=== PATIENT | female | born 1985 | race Caucasian/White ===

== ENCOUNTER → 2022-07-27 11:00 | Outpatient (CLI) | payer OTHER, SELFPAY | PROVIDERS: PCP Family Medicine; Visit Provider Obstetrics & Gynecology | DX: Z34.82 Encounter for supervision of other normal pregnancy, second trimester (principal) | CPT/HCPCS: 87086 ==

== ENCOUNTER → 2022-07-28 07:58 | Outpatient (CLI) | payer OTHER, SELFPAY ==
--- NOTE | 2022-07-28 08:00 | DI.US.S_ITS ---
PROCEDURE: US OB >= 14 WEEKS FETUS INDICATIONS: anatomy scan OUTSIDE/PRIOR DATING DATA: Last menstrual period (LMP): Not reported. LMP-based estimated date of delivery (ORLIN): 12/01/2022. First dating scan (date and location): 07/28/2022. Estimated date of delivery (ORLIN) from first dating scan: 11/28/2022. The calculations are made using the clinical ORLIN of 12/01/2022. TECHNIQUE: Real-time scanning was performed of the fetus, with image documentation and biometric measurements. Endovaginal scanning: Not performed COMPARISON: None. FINDINGS: General: A single living intrauterine gestation is present. Presentation: Vertex. Placenta: Placental position is anterior/fundal , without previa. Amniotic fluid index: 17 cm, normal range is 5-24 cm. Single deepest vertical pocket is 6.3 cm. heart rate: 145 beats per minute. Maternal cervical canal: 4.8 cm long. Normal lower limit is 2.5 cm. biometrics: Biparietal diameter: 5.5 centimeters, 22 weeks 4 days Head circumference: 20.1 centimeters, 22 weeks 2 days Abdominal circumference: 14.7 centimeters, 22 weeks 3 days Femur length: 3.8 centimeters, 22 weeks 1 day Clinically estimated gestational age: 22 weeks 3 days Composite gestational age from present scan: 22 weeks 3 days Estimated weight and percentile: 491 grams Anatomic survey: Neuro: Ventricles are non-dilated at less than 10 mm. Cisterna magna is normal at 3-11 mm. Cerebellum is normal in size and morphology. Nuchal skin fold: Normal at less than 6 mm between 14-21 weeks gestational age. Face: Nose and lips, facial profile are normal. Spine: No evidence for spina bifida. Heart: 4-chambered heart is present, with normal ventricular outflow tracts. Diaphragm: Diaphragm is intact. Stomach: Left-sided stomach is present. Kidneys: No hydronephrosis. Normal is less than 5 mm in 2nd trimester, less than 7 mm in 3rd trimester. Cord: 3-vessel cord has orthotopic insertion. Bladder: Normal in size. Extremities: All 4 extremities identified. IMPRESSION: Single living intrauterine at 22 weeks 3 days, ORLIN of 12/01/2022. Unremarkable anatomy survey. We strive to produce accurate, complete, and clear reports of imaging services. To assist us in improving patient care, this report was composed using standard report templates and voice recognition software. Therefore, it may contain abnormal punctuation, insertions and/or omissions. Occasional wrong-word or sound-alike substitutions may occur. Though we review the report and make efforts to correct it, we do recommend that the report be read carefully in proper context to recognize any text inaccuracies. Dictated by: Donavan Valdes M.D. on 07/28/2022 at 9:43 Approved by: Donavan Valdes M.D. on 07/28/2022 at 9:46
[2022-07-28 10:27] LABS: Add Manual Diff / Slide Review NO; Basophils Absolute Auto 0 /uL (0-100); Basophils Percent Auto 0.4 % (0-2); Eosinophils Absolute Auto 200 /uL (0-450); Eosinophils Percent Auto 2.4 % (2-4); Hematocrit 36.1 % (36-46); Hemoglobin 12.4 g/dL (12.0-16.0); Lymphocytes Absolute Auto 1400 /uL (1100-4500); Lymphocytes Percent Auto 18.3 % (25-40); Mean Corpuscular HGB Conc 34.4 % (30-36); Mean Corpuscular Hemoglobin 29.9 PG (26-34); Mean Corpuscular Volume 86.8 fL (80-100); Monocytes Absolute Auto 500 /uL (0-900); Monocytes Percent Auto 6.1 % (3-14); Neutrophils Absolute Auto 5700 /uL (1500-7000); Neutrophils Percent Auto 72.8 % (50-75); Platelet Count 264 X10^3/uL (150-400); Red Blood Cell Count 4.16 X10^6/uL (4.0-5.2); Red Cell Distribution Width 13.6 % (11.6-14.8); White Blood Cell Count 7.8 X10^3/uL (4.5-11.0)
[2022-07-28 11:24] LABS: Hepatitis B Surface Antigen NEGATIVE s/c (NEGATIVE); Rubella Antibody IgG 79.5 IU/mL (>15)
[2022-07-28 11:41] LABS: HIV 1 & 2 Ab/Ag 4th Gen Combo NEGATIVE (NEGATIVE); Hep C Virus Ab w/Reflex Quant NEGATIVE s/c (NEGATIVE)
[2022-07-29 03:09] LABS: RPR Screen Non Reactive (Non Reactive)
[2022-07-29 08:08] LABS: Varicella IgG Antibody 2172 index (Immune >165)
== END ==
PROVIDERS: PCP Family Medicine; Referring Provider Obstetrics & Gynecology; Visit Provider Obstetrics & Gynecology
DX: O09.30 Supervision of pregnancy with insufficient antenatal care, unspecified trimester (principal); Z3A.20 20 weeks gestation of pregnancy
CPT/HCPCS: 36415; 76811; 80055; 86787; 86803; 86850; 86900; 86901; 87389

== ENCOUNTER → 2022-08-31 13:27 | Outpatient (CLI) | payer OTHER, SELFPAY ==
[2022-08-31 17:01] LABS: Hematocrit 34.5 % (36-46)
[2022-08-31 17:39] LABS: GTT (PREG) 1 Hour PP 50gm Dose 135 mg/dL (76-139)
== END ==
PROVIDERS: PCP Family Medicine; Referring Provider Obstetrics & Gynecology; Visit Provider Obstetrics & Gynecology
DX: Z34.82 Encounter for supervision of other normal pregnancy, second trimester; Z3A.26 26 weeks gestation of pregnancy
CPT/HCPCS: 36415; 82950; 85014; 85018

== ENCOUNTER 2022-11-17 08:11 | Inpatient (IN) | payer OTHER, SELFPAY ==
[2022-11-17 09:31] LABS: Add Manual Diff / Slide Review NO; Basophils Absolute Auto 100 /uL (0-100); Basophils Percent Auto 0.5 % (0-2); Eosinophils Absolute Auto 200 /uL (0-450); Eosinophils Percent Auto 1.3 % (2-4); Lymphocytes Absolute Auto 1700 /uL (1100-4500); Lymphocytes Percent Auto 13.8 % (25-40); Mean Corpuscular HGB Conc 34.3 % (30-36); Mean Corpuscular Hemoglobin 30.3 PG (26-34); Mean Corpuscular Volume 88.5 fL (80-100); Monocytes Absolute Auto 900 /uL (0-900); Monocytes Percent Auto 6.8 % (3-14); Neutrophils Absolute Auto 9800 /uL (1500-7000); Neutrophils Percent Auto 77.6 % (50-75); Platelet Count 253 X10^3/uL (150-400); Red Blood Cell Count 4.29 X10^6/uL (4.0-5.2); Red Cell Distribution Width 13.6 % (11.6-14.8); White Blood Cell Count 12.7 X10^3/uL (4.5-11.0)
[2022-11-17 09:41] LABS: Strep Grp B PCR NEG for Grp B Strep
[2022-11-17] MEDS: FENT 2MCG/ML BUPIV 0.1% EPI 200 MCG/100 ML PLAST..BAG 10 MCG EPIDURAL (10:15)
--- NOTE | 2022-11-17 10:35 | PM.OBHP.IH.1 ---
OB HPI Date/Time Date of admission: 11/17/22 Date Patient Seen: 11/17/22 Time Patient Seen: 10:35 History of Present Condition Chief complaint: OB ORLIN Calculator Estimated Delivery Date Method Current WG Current Estimate 12/01/22 LMP (Certain) 38w 5d Other Estimates 11/24/22 Ultrasound #1 39w 5d : 2 Para: 1 Narrative: Pt had SROM in middle of night. Clear fluid. Presents in active labor. GBS unknown. Missed last appt. care: limited care, initiated at week # (22), number of visits (5) and pounds weight gain (33) Dating criteria OB: LMP confirmed by 2nd trimester US Ultrasounds: normal mid trimester US Obstetrical complications: none Medical complications OB: neurological (TIA in Mar. MRI neg) Preadmission Labs Last OB Lab Results: Blood Type B Positive 11/17/22 10:15 Antibody Screen Negative 11/17/22 10:15 Hematocrit 35.3 % (36-46) L 11/18/22 06:02 Hemoglobin 11.9 g/dL (12.0-16.0) L 11/18/22 06:02 Hepatitis B Surface Antigen Negative s/c (NEGATIVE) 07/28/22 09:25 Hepatitis C Antibody Negative s/c (NEGATIVE) 07/28/22 09:25 Rubella Antibody 79.5 IU/mL (>15) 07/28/22 09:25 Varicella-Zoster IgG Antibody 2172 index (Immune >165) 07/28/22 09:25 Glucose 1 Hour 135 mg/dL (76-139) 08/31/22 16:11 Group B Streptococcus (PCR) Neg for grp b strep 11/17/22 08:30 -: Urine: negative External Labs -: Urine: negative Prior (ies) Past Pregnancies Del. Date GA/Weeks Labor Lgth Wt Sex Route Outcome Anesthesia Place Delv Breastfeed Preg Comp Name 11/07/19 40 27 8 lb 8 oz Male vaginal live - full term La[place] 2 years none Anand Evaluation Evaluation Baseline heart rate: 135 Variability: Moderate (11-25) monitor accelerations: Present Monitor Decelerations: Absent Contraction Frequency (minutes): 3 Uterine Contraction Intensity: Strong/Firm Status: Category l Dilation (cm): 5 Effacement (%): 100 station: -1 Position of cervix: mid Consistency: soft PFSH Medical History (Updated 11/18/22 @ 07:13 by Mimi Low MD) Chicken pox Eczema Food allergy hemorrhage Surgical History (Updated 08/12/22 @ 22:04 by Priscila Nash) Anesthesia [place] teeth extracted (~2001) Family History (Updated 07/19/22 @ 09:12 by Carmen Gutierrez RN) Grandmother Ovarian cancer Family/Other Breast cancer Social History marital status: number of children: 1 household members: spouse and children lives independently: Yes caregiver/support person: Yes housing: house pets and animals: Yes (2 dogs) education level: college (Associates degree) occupational status: employed (owns a restaurant) current occupational exposures/hazards: Yes (cleaning chemicals) luisito/zoroastrianism: Orthodoxy special luisito needs: No travel history: over 6 months ago seatbelt use: always helmet use: Yes water heater temp set < 120 deg: Yes working smoke detector in home: Yes fire extinguisher in home: Yes carbon monox detector in home: Yes firearms in home: Yes firearms unloaded and locked: Yes do you feel safe at home: Yes Smoking Status: Never smoker second hand exposure: No alcohol intake: never substance use type: does not use during the past year weight has: decreased > 10 lbs (intentional) well-balanced diet: daily or most days daily servings fruits/ve-4 caffeine: No Type(s) of exercise: none Meds Home Medications and Allergies Home Medications Medication Instructions Recorded Confirmed Type vitamin-ferrous sulfate See Rx Instructions .Route .COMPLEX 10/13/22 11/17/22 History 27 mg iron-folic acid 0.8 mg tablet breast pump #1 ea 10/27/22 11/17/22 Rx Allergies Allergy/AdvReac Type Severity Reaction Status Date / Time Penicillins Allergy Mild Rash Verified 10/27/22 08:47 OB Exam Narrative Exam Narrative: Generally: Moderate distress due to contractions FH: 38 cm EFW: 7 1/2 pounds Ext: Trace edema Objective Labs 11/18/22 06:02 Labs: Laboratory Results - last 24 hr 11/17/22 11/17/22 08:30 09:04 WBC 12.7 H RBC 4.29 Hgb 13.0 Hct 38.0 MCV 88.5 MCH 30.3 MCHC 34.3 RDW 13.6 Plt Count 253 Neut % (Auto) 77.6 H Lymph % (Auto) 13.8 L [place] % (Auto) 6.8 Eos % (Auto) 1.3 L Baso % (Auto) 0.5 Neut # (Auto) 9800 H Lymph # (Auto) 1700 [place] # (Auto) 900 Eos # (Auto) 200 Baso # (Auto) 100 Group B Strep (PCR) Neg for grp b strep Assessment and Plan Assessment and Plan Assessment and Plan narrative: Assessment: 37 year old at 38 wks in active labor s/p SROM with clear amniotic fluid Plan: GBS obtained Epidural as needed Expectant management to Time Spent with Patient Total time spent with greater than 50% in coordination of care (as documented) at patient's floor/unit and/or counseling patient:: 15-24 minutes
[2022-11-17 10:47] VITALS: BP 105/65
[2022-11-17] MEDS: LACTATED RINGERS 1,000 ML 100 ML IV (10:56)
[2022-11-17] MEDS: OXYTOCIN PREMIX 30 UNIT/500 ML PLAST..BAG 200 UNIT IV (13:50)
[2022-11-17 20:31] VITALS: TEMP 36.6
[2022-11-17] MEDS: IBUPROFEN 600 MG TABLET PO (20:31)
[2022-11-17] MEDS: LANOLIN OINT 7 GM 1 APPLIC TOP (20:31)
[2022-11-17] MEDS: DERMOPLAST SPRAY 20% 60 ML 1 SPRAY TOP (20:31)
[2022-11-17] MEDS: ACETAMINOPHEN 325 MG TABLET 650 MG PO (22:40)
[2022-11-18] MEDS: IBUPROFEN 600 MG TABLET PO ×2 (02:28→08:40)
[2022-11-18 06:31] LABS: Hematocrit 35.3 % (36-46); Hemoglobin 11.9 g/dL (12.0-16.0)
--- NOTE | 2022-11-18 07:09 | P.DS_ITS ---
Discharge Providers Provider Date of admission: 11/17/22 08:11 Discharge Date: 11/18/22 Primary care physician: Tomasa Kohler MD Consults: 11/17/22 09:04 Consult to Anesthesiology Urgent Comment: Consulting Provider: Anesthesiologist Reason for consultation: Epidural 11/18/22 16:21 Consult to Setter Automatic Spinning Lathe Routine Comment: Discharge provider: Mimi Low MD Summary Hospital Course Date Patient Seen: 11/18/22 Time Patient Seen: 07:09 Diagnoses: Vaginal delivery Hospital Course: Patient arrived on Labor and delivery after spontaneous rupture of membranes. She went into active labor and received an epidural catheter for pain control. She had a spontaneous vaginal delivery of a viable female weighing 7 lb. She had a first-degree perineal tear repaired. Patient is without difficulty. She is urinating and ambulating well. Bleeding is under control. No headaches, scotomata, epigastric pain. Peripartum Data Infant Delivery Method: Natural Vaginal Laceration Description: Perineal - 1st Degree Procedures: Epidural catheter, spontaneous vaginal delivery, repair of first-degree vaginal tear complications: none 1: Gender: Female Disposition of : home Discharge Diagnosis (1) Vaginal delivery: Status: Acute Status at Discharge Cognitive/behavioral status at discharge: oriented Functional status at discharge: independent ambulation Overall status at discharge: patient is progressing back to baseline Time Spent with Patient Time attestation: Total time spent providing and/or coordinating discharge services: Time spent: Less than 30 minutes Objective Labs 11/18/22 06:02 Labs: Laboratory Results - last 24 hr 11/17/22 11/17/22 11/17/22 08:30 09:04 10:15 WBC 12.7 H RBC 4.29 Hgb 13.0 Hct 38.0 MCV 88.5 MCH 30.3 MCHC 34.3 RDW 13.6 Plt Count 253 Neut % (Auto) 77.6 H Lymph % (Auto) 13.8 L [place] % (Auto) 6.8 Eos % (Auto) 1.3 L Baso % (Auto) 0.5 Neut # (Auto) 9800 H Lymph # (Auto) 1700 [place] # (Auto) 900 Eos # (Auto) 200 Baso # (Auto) 100 Group B Strep (PCR) Neg for grp b strep Blood Type B Positive Antibody Screen Negative 11/18/22 06:02 WBC RBC Hgb 11.9 L Hct 35.3 L MCV MCH MCHC RDW Plt Count Neut % (Auto) Lymph % (Auto) [place] % (Auto) Eos % (Auto) Baso % (Auto) Neut # (Auto) Lymph # (Auto) [place] # (Auto) Eos # (Auto) Baso # (Auto) Group B Strep (PCR) Blood Type Antibody Screen Exam Vital Signs (past 8 hours): Blood pressure 102/62, pulse of 90, temperature 98.7? Narrative Exam Narrative: Abdomen is soft, nontender. Uterus is firm, at U, nontender. Mild lochia. Extremities without edema and nontender. Discharge Plan Discharge Plan Patient Disposition: Home Discharge orders & Medications Prescriptions: Continued vit-ferrous sulfat-FA 27 mg iron- 0.8 mg tablet See Rx Instructions .ROUTE .COMPLEX Rx Instructions: per provider order (DME) breast pump Device See Rx Instructions .ROUTE .MEDSUPPLY Qty: 1 0RF Rx Instructions: As directed Discontinued aspirin [Adult Low Dose Aspirin] 81 mg tablet,delayed release (DR/EC) 81 mg PO DAILY Follow up/Referrals: Mirlande Anders MD [Physician] - 6 Weeks Tomasa Kohler MD [Primary Care Provider] - Diet/Activity/Treatments Diet: Regular Activity: Nothing in vagina for 6 weeks Skin/Wound/Dressing Care Report to your healthcare provider any signs of infection, such as:: chills, fever and increased pain Visit Report/Discharge Packet Stand Alone Forms: Patient Portal/API Discharge Data Primary Care Provider: Tomasa Kohler
[2022-11-18] MEDS: DOCUSATE 100 MG CAPSULE PO (08:40)
[2022-11-18] MEDS: ACETAMINOPHEN 325 MG TABLET 650 MG PO (08:40)
[2022-11-18] MEDS: PRENATAL VIT,CALC/IRON/FOLIC 1 TABLET 1 TAB PO (08:40)
--- NOTE | 2022-11-22 18:53 | PM.OBPRVD ---
Labor & Delivery Delivery date: 11/17/22 Cervical ripening method: none Induction method: none Delivery monitor: external FHT and external uterine Route of delivery: Episiotomy description: None L&D Laceration Description: Perineal - 1st Degree and Vaginal - 1st Degree Quantitative Blood Loss: 100 Anesthesia Type: Epidural Complications: None Narrative: Pt complete and pushed x 19 min. At 1337, a live female infanct delivered spontaneously over an intact perineum. No nuchal cord. The remainder of the body delivered without difficulty and placed on mom's abdomen. The cord was double-clamped and cut after it stopped pulsing. Pitocin was given in the IVF's. Cord bloods were obtained. The placenta delivered intact with a 3-vessel cord at 1348. Fundus massaged to firm. A first degree perineal/vaginal laceration was repaired in the usual fashion. Hemostasis achieved. Apgars 9 at 1 min, and 9 at 5 min. Epidural analgesia. BW 7#0.2oz. . Mom and infant stable to recovery. [place] Baby 1: gender: Female Presentation: vertex Position: Right Occiput Anterior Placenta delivery description: Spontaneous Cord Vessel Description: 3 Vessels score (1 min): 9 score (5 min): 9 weight: 7 lb 0.2 oz Plan for aftercare: Routine care
--- NOTE | 2022-11-22 19:00 | PM.OBDS.1 ---
Discharge Providers Provider Date of admission: 11/17/22 08:11 Discharge Date: 11/18/22 Primary care physician: Tomasa Kohler MD Consults: 11/17/22 09:04 Consult to Anesthesiology Urgent Comment: Consulting Provider: Anesthesiologist Reason for consultation: Epidural Discharge provider: Mirlande Anders MD Summary Hospital Course Date Patient Seen: 11/18/22 Hospital Course: Patient arrived on Labor and delivery after spontaneous rupture of membranes. She went into active labor and received an epidural catheter for pain control. She had a spontaneous vaginal delivery of a viable female infant weighing 7 lb. She had a first-degree perineal tear repaired. Patient is without difficulty. She is urinating and ambulating well. Bleeding is under control. No headaches, scotomata, epigastric pain. Discharge Diagnosis (1) Vaginal delivery: Status: Acute Time Spent with Patient Time attestation: Total time spent providing and/or coordinating discharge services: Objective Labs 11/18/22 06:02 Discharge Plan Discharge Plan Patient Disposition: Home Discharge orders & Medications Prescriptions: Continued vit-ferrous sulfat-FA 27 mg iron- 0.8 mg tablet See Rx Instructions .ROUTE .COMPLEX Rx Instructions: per provider order (DME) breast pump Device See Rx Instructions .ROUTE .MEDSUPPLY Qty: 1 0RF Rx Instructions: As directed Discontinued aspirin [Adult Low Dose Aspirin] 81 mg tablet,delayed release (DR/EC) 81 mg PO DAILY Follow up/Referrals: Mirlande Anders MD [Physician] - 6 Weeks (Please call Sunday to schedule 6 wk appointment.) Tomasa Kohler MD [Primary Care Provider] - Diet/Activity/Treatments Diet: Regular Activity: Nothing in vagina for 6 weeks Skin/Wound/Dressing Care Report to your healthcare provider any signs of infection, such as:: chills, fever and increased pain Visit Report/Discharge Packet Stand Alone Forms: Discharge: Care, Patient Portal/API Discharge Data Primary Care Provider: Tomasa Kohler Discharges patient from system. Discharge Date/Time: 11/18/22 14:10
== END 2022-11-18 14:10 | disposition home or self-care (01) | DRG 807 ==
PROVIDERS: Admitting Provider Obstetrics & Gynecology; PCP Family Medicine; Referring Provider Obstetrics & Gynecology; Visit Provider Obstetrics & Gynecology
DX: O70.0 First degree perineal laceration during delivery (principal); Z37.0 Single live birth; Z3A.38 38 weeks gestation of pregnancy
CPT/HCPCS: 36415; 59050; 59400; 85014; 85018; 85025; 86850; 86900; 86901; 87081; 87147; 87653; G0379; J2590